=== PATIENT | male | born 1930 | race Caucasian/White ===

== ENCOUNTER → 2017-01-05 | Outpatient (CLI) | payer OTHER ==
--- NOTE | 2017-01-05 14:58 | CPEEG ---
[f rep st] ELECTROENCEPHALOGRAM ELECTROENCEPHALOGRAM. DATE OF STUDY: 01/05/2017 INTERPRETATION: Normal EEG during wakefulness and partial sleep. There were no potentially epilept ogenic abnormalities present in the recording. REPORT: This EEG contains 10 Hz alpha to the posterior head regions. The background activity was n ormal and symmetric. There was no abnormal activation at rest, during photic stimulation, or hyperv entilation. The patient intermittently became drowsy and fell into light sleep during the study. T here was no abnormal activation during drowsiness, light sleep, or during times of arousal. /[id number]/MODL
== END ==
LOC: FCPNEURO 11:03
PROVIDERS: ATTEND Psychiatry & Neurology Neurology
DX: H53.9 Unspecified visual disturbance (principal); R51 Headache

== ENCOUNTER → 2017-01-13 | Outpatient (CLI) | payer OTHER ==
[~2017-01-13] MED LIST: GADOBUTROL 10 ML VIAL IVP ONE
[2017-01-13 16:04] LABS: CREATININE 0.9 mg/dL (0.7-1.3); GLOMERULAR FILTRATION RATE > 60
== END ==
LOC: FIMAGING 15:09
PROVIDERS: ATTEND Psychiatry & Neurology Neurology
DX: R51 Headache (principal); H53.9 Unspecified visual disturbance
CPT/HCPCS: 70553; A9585

== ENCOUNTER 2017-12-27 03:41 | Inpatient (IN) | payer OTHER ==
[2017-12-27] MEDS ORDERED: NS 1,000 ML IV ONE (03:53)
[2017-12-27] MEDS ORDERED: fentaNYL 100 MCG/2 ML INJ IVP ONE ×2 (03:53→06:35)
--- NOTE | 2017-12-27 03:55 | EDPHY ---
H & P Stated Complaint: BLOATED SINCE 2229 Time Seen by Provider: 12/27/17 03:48 HPI/ROS: Chief Complaint: Abdominal pain HPI: 79-year-old male's began feeling abdominal distention and bloating at 8: 30 a.m. The yesterday evening when he went to bed. Patient states the pain is been getting progressively worse. No nausea or vomiting. Last bowel movement was yesterday morning was normal. No diarrhea. No fevers or chills. Does not have a history of similar episodes in the past. Has had an appendectomy in the past but no other abdominal surgeries. No chest pain or shortness of breath. No fevers or chills. No recent illness. ROS: 10 point Review of Systems is negative except as noted in the HPI. PMH: Polymyalgia rheumatica, spinal stenosis, hyperlipidemia Social History: No smoking, no alcohol, no recreational drug use Family History: non-contributory Physical Exam: Gen: Awake, Alert, No Distress HEENT: Nose: no rhinorrhea Eyes: PERRLA, EOMI Mouth: Moist mucosa Neck: Supple, no JVD Chest: nontender, lungs clear to auscultation Heart: S1, S2 normal, no murmur Abd: Soft, distended, diffuse tenderness, no guarding Back: no CVA tenderness, no midline tenderness Ext: no edema, non-tender Skin: no rash Neuro: CN II-XII intact, Sensation grossly intact, Strength 5/5 in bilateral upper and lower extremities - Personal History Current Tetanus Diphtheria and Acellular Pertussis (TDAP): Yes - Medical/Surgical History Hx Asthma: No Hx Chronic Respiratory Disease: No Hx Diabetes: No Hx Cardiac Disease: No Hx Renal Disease: No Hx Cirrhosis: No Hx Alcoholism: No Hx HIV/AIDS: No Hx Splenectomy or Spleen Trauma: No Other PMH: arthritis/varicocele/bph, HLD, POLYMYALGIA - Social History Smoking Status: Never smoked Constitutional: Initial Vital Signs Temperature (C) 36.3 C 12/27/17 03:41 Heart Rate 61 12/27/17 03:41 Respiratory Rate 12 12/27/17 03:41 Blood Pressure 158/90 H 12/27/17 03:41 O2 Sat (%) 95 12/27/17 03:41 O2 Delivery Mode Room Air Allergies/Adverse Reactions: Penicillins Allergy (Verified 08/11/13 15:59) Home Medications: Medication Instructions Recorded Flomax 0.4 MG (RX) 08/11/13 Prednisolone 08/11/13 Simvastatin 08/11/13 Zolpidem Tartrate 08/11/13 traMADOL 08/11/13 Finasteride 12/27/17 Ropinirole ER 12/27/17 Medical Decision Making - Diagnostics Imaging Results: CT scan of the abdomen pelvis shows a high-grade small-bowel obstruction in the right mid small bowel at the level the ileum. There is some mesenteric edema and free fluid. No perforation. Study interpreted by Dr. Truong. Imaging: Discussed imaging studies w/ call center operations manager Radiologist ED Course/Re-evaluation: CT scan is consistent with small-bowel obstruction. I have discussed with Dr. Hernandes, general surgery. He will admit for further care. - Data Points Laboratory Results: Laboratory Results 12/27/17 03:45 12/27/17 03:45 12/27/17 12/27/17 03:45 03:45 WBC 8.06 10^3/uL 10^3/uL (3.80-9.50) RBC 4.65 10^6/uL 10^6/uL (4.40-6.38) Hgb 15.0 g/dL g/dL (13.7-17.5) Hct 44.5 % % (40.0-51.0) MCV 95.7 fL fL (81.5-99.8) MCH 32.3 pg pg (27.9-34.1) MCHC 33.7 g/dL g/dL (32.4-36.7) RDW 13.2 % % (11.5-15.2) Plt Count 217 10^3/uL 10^3/uL (150-400) MPV 10.2 fL fL (8.7-11.7) Neut % (Auto) 74.4 % H % (39.3-74.2) Lymph % (Auto) 14.5 % L % (15.0-45.0) [place] % (Auto) 8.4 % % (4.5-13.0) Eos % (Auto) 1.7 % % (0.6-7.6) Baso % (Auto) 0.6 % % (0.3-1.7) Nucleat RBC Rel Count 0.0 % % (0.0-0.2) Absolute Neuts (auto) 5.99 10^3/uL 10^3/uL (1.70-6.50) Absolute Lymphs (auto) 1.17 10^3/uL 10^3/uL (1.00-3.00) Absolute Monos (auto) 0.68 10^3/uL 10^3/uL (0.30-0.80) Absolute Eos (auto) 0.14 10^3/uL 10^3/uL (0.03-0.40) Absolute Basos (auto) 0.05 10^3/uL 10^3/uL (0.02-0.10) Absolute Nucleated RBC 0.00 10^3/uL 10^3/uL (0-0.01) Immature Gran % 0.4 % % (0.0-1.1) Immature Gran # 0.03 10^3/uL 10^3/uL (0.00-0.10) Sodium 140 mEq/L mEq/L (135-145) Potassium 4.2 mEq/L mEq/L (3.3-5.0) Chloride 100 mEq/L mEq/L (97-110) Carbon Dioxide 30 mEq/l mEq/l (22-31) Anion Gap 10 mEq/L mEq/L (8-16) BUN 19 mg/dL mg/dL (7-23) Creatinine 0.9 mg/dL mg/dL (0.7-1.3) Estimated GFR > 60 Glucose 143 mg/dL H mg/dL (70-100) Calcium 9.3 mg/dL mg/dL (8.5-10.4) Total Bilirubin 0.6 mg/dL mg/dL (0.1-1.4) AST 29 IU/L IU/L (17-59) ALT 46 IU/L IU/L (21-72) Alkaline Phosphatase 56 IU/L IU/L (38-126) Total Protein 6.5 g/dL g/dL (6.3-8.2) Albumin 3.8 g/dL g/dL (3.5-5.0) Lipase 107 IU/L IU/L (23-300) Medications Given: Discontinued Medications Fentanyl (Sublimaze) 50 mcg IVP EDNOW ONE Stop: 12/27/17 03:54 Last Admin: 12/27/17 04:05 Dose: 50 mcg Sodium Chloride (Ns) 1,000 mls @ 0 mls/hr IV ONCE ONE; Wide Open PRN Reason: Protocol Stop: 12/27/17 03:54 Last Admin: 12/27/17 04:04 Dose: 1,000 mls Departure - Departure Disposition: [facility] Inpatient Acute Clinical Impression: Bowel obstruction Condition: Fair Referrals: Patient,NotPresent [Unknown] - As per Instructions
[2017-12-27 04:01] LABS: PLATELET COUNT 217 10^3/uL (150-400)
[2017-12-27] MEDS ORDERED: IOPAMIDOL (ISOVUE-300) 100 ML BTL ONE (04:19)
[2017-12-27] MEDS ORDERED: LIDOCAINE 1% 300 MG/30 ML SDV ONE (06:16)
[2017-12-27] MEDS ORDERED: BUPIVACAINE 0.5% 30 ML SDV ONE (06:16)
[2017-12-27] MEDS ORDERED: fentaNYL 100 MCG/2 ML INJ ONE ×3 (06:39→08:11)
--- NOTE | 2017-12-27 06:51 | PDANEPAE ---
ANE History of Present Illness SBO Lysis of adhesions ANE Past Medical History - Cardiovascular History Hx Hypertension: No Hx Arrhythmias: No Hx Chest Pain: No Hx Coronary Artery / Peripheral Vascular Disease: No Hx CHF / Valvular Disease: No Hx Palpitations: No - Pulmonary History Hx COPD: No Hx Asthma/Reactive Airway Disease: No Hx Recent Upper Respiratory Infection: No Hx Oxygen in Use at Home: No Hx Sleep Apnea: No - Endocrine History Hx Diabetes: No Hypothyroid: No Hyperthyroid: No Obesity: no - Renal History Hx Renal Disorders: No - Liver History Hx Hepatic Disorders: No - Neurological & Psychiatric Hx Hx Neurological and Psychiatric Disorders: No - Cancer History Hx Cancer: No - Chronic Pain History Chronic Pain: Yes (SPinal stenois) ANE Review of Systems Review of Systems: - Exercise capacity METS (RN): 3 METS - Systems Muscolosketal: Reports: other (Polymyalgia rheumatica) ANE Patient History - Allergies Allergies/Adverse Reactions: Penicillins Allergy (Verified 08/11/13 15:59) - Home Medications Home Medications: Flomax 0.4 MG (RX) 08/11/13 [Last Taken Unknown] Prednisolone 08/11/13 [Last Taken Unknown] Simvastatin 08/11/13 [Last Taken Unknown] Zolpidem Tartrate 08/11/13 [Last Taken Unknown] traMADOL 08/11/13 [Last Taken Unknown] Finasteride 12/27/17 [Last Taken Unknown] Ropinirole ER 12/27/17 [Last Taken Unknown] - NPO status NPO Status: no food or drink >8 hours - Anes Hx Anes Hx: no prior problems - Smoking Hx Smoking Status: Never smoked Marijuana use: No - Alcohol Use Alcohol Use: None - Family Anes Hx Family Anes Hx: neg - N/A ANE Labs/Vital Signs - Labs Result Diagrams: 12/27/17 03:45 12/27/17 03:45 - Vital Signs Blood Pressure: 148/73 Heart Rate: 75 Respiratory Rate: 16 O2 Sat (%): 96 Height: 180.34 cm Weight: 72.575 kg ANE Physical Exam - Airway Neck exam: decreased ROM Mallampati Score: Class 2 Mouth exam: normal dental/mouth exam, poor dentition - Pulmonary Pulmonary: no respiratory distress, no rales or rhonchi - Cardiovascular Cardiovascular: regular rate and rhythym, no murmur, rub, or gallop - ASA Status ASA Status: III ANE Anesthesia Plan Anesthesia Plan: general endotracheal anesthesia (RSI)
--- NOTE | 2017-12-27 06:57 | PDGENHP ---
History and Physical - Chief Complaint abdominal pain - History of Present Illness This is an 87-year-old gentleman known to [facility] for previous appendectomy 5 years ago and interval hernia. He has a 24 hr history of abdominal pain on starting as a crampy bloating feeling which shall woke him up from sleep this evening. He has been eating very small meals an x-ray was unable to eat prior to going to bed last night due to his ongoing abdominal pain. He denies any fevers or chills. He is last bowel movement/flatus was yesterday but he has had minimal bowel activity over the last 48 hr. Evaluation in the emergency room demonstrated small-bowel obstruction high- grade without leukocytosis or fever History Information - Allergies/Home Medication List Allergies/Adverse Reactions: Penicillins Allergy (Verified 08/11/13 15:59) Home Medications: Flomax 0.4 MG (RX) 08/11/13 [Last Taken Unknown] Prednisolone 08/11/13 [Last Taken Unknown] Simvastatin 08/11/13 [Last Taken Unknown] Zolpidem Tartrate 08/11/13 [Last Taken Unknown] traMADOL 08/11/13 [Last Taken Unknown] Finasteride 12/27/17 [Last Taken Unknown] Ropinirole ER 12/27/17 [Last Taken Unknown] I have personally reviewed and updated: family history, medical history, surgical history - Past Medical History hyperlipidemia Additional medical history: Polymyalgia rheumatica, BPH, dyspepsia - Surgical History Reports: appendectomy, hernia repair - Family History Positive for: non-pertinent - Social History Smoking Status: Never smoked Review of Systems Review of Systems: ROS: 10pt was reviewed & negative except for what was stated in HPI & below Constitutional: Reports: malaise. Denies: weight loss Cardiac: Reports: no symptoms Gastrointestinal: Reports: abdominal pain, nausea. Denies: vomitting, rectal bleeding, diarrhea Genitourinary: Reports: urgency Neurological: Reports: tremors Physical Exam Physical Exam: Temp Pulse Resp BP Pulse Ox 36.3 C 75 16 148/73 H 96 12/27/17 03:41 12/27/17 06:51 12/27/17 06:51 12/27/17 06:51 12/27/17 06:51 Constitutional: no apparent distress Eyes: anicteric sclera, EOMI Ears, Nose, Mouth, Throat: moist mucous membranes Cardiovascular: regular rate and rhythym Peripheral Pulses: 2+: carotid (R), carotid (L), femoral (R), femoral (L), dorsalis-pedis (R), dorsalis-pedis (L) Respiratory: no respiratory distress, clear to auscultation Gastrointestinal: no palpable masses, tenderness, distension, other (Small umbilical hernia reducible), No hepatosplenomegally, No guarding, No rebound Skin: warm, No erythema Musculoskeletal: full muscle strength, normal joint ROM Neurologic: AAOx3, CN II-XII Intact, No facial droop Psychiatric: interacting appropriately Lymph, Heme, Immunologic: no cervical LAD, no supraclavicular LAD, No ecchymoses , No petechiae Lab Data & Imaging Review 12/27/17 03:45 12/27/17 03:45 WBC 8.06 10^3/uL (3.80-9.50) 12/27/17 03:45 RBC 4.65 10^6/uL (4.40-6.38) 12/27/17 03:45 Hgb 15.0 g/dL (13.7-17.5) 12/27/17 03:45 Hct 44.5 % (40.0-51.0) 12/27/17 03:45 MCV 95.7 fL (81.5-99.8) 12/27/17 03:45 MCH 32.3 pg (27.9-34.1) 12/27/17 03:45 MCHC 33.7 g/dL (32.4-36.7) 12/27/17 03:45 RDW 13.2 % (11.5-15.2) 12/27/17 03:45 Plt Count 217 10^3/uL (150-400) 12/27/17 03:45 MPV 10.2 fL (8.7-11.7) 12/27/17 03:45 Neut % (Auto) 74.4 % (39.3-74.2) H 12/27/17 03:45 Lymph % (Auto) 14.5 % (15.0-45.0) L 12/27/17 03:45 [place] % (Auto) 8.4 % (4.5-13.0) 12/27/17 03:45 Eos % (Auto) 1.7 % (0.6-7.6) 12/27/17 03:45 Baso % (Auto) 0.6 % (0.3-1.7) 12/27/17 03:45 Nucleat RBC Rel Count 0.0 % (0.0-0.2) 12/27/17 03:45 Absolute Neuts (auto) 5.99 10^3/uL (1.70-6.50) 12/27/17 03:45 Absolute Lymphs (auto) 1.17 10^3/uL (1.00-3.00) 12/27/17 03:45 Absolute Monos (auto) 0.68 10^3/uL (0.30-0.80) 12/27/17 03:45 Absolute Eos (auto) 0.14 10^3/uL (0.03-0.40) 12/27/17 03:45 Absolute Basos (auto) 0.05 10^3/uL (0.02-0.10) 12/27/17 03:45 Absolute Nucleated RBC 0.00 10^3/uL (0-0.01) 12/27/17 03:45 Immature Gran % 0.4 % (0.0-1.1) 12/27/17 03:45 Immature Gran # 0.03 10^3/uL (0.00-0.10) 12/27/17 03:45 Sodium 140 mEq/L (135-145) 12/27/17 03:45 Potassium 4.2 mEq/L (3.3-5.0) 12/27/17 03:45 Chloride 100 mEq/L (97-110) 12/27/17 03:45 Carbon Dioxide 30 mEq/l (22-31) 12/27/17 03:45 Anion Gap 10 mEq/L (8-16) 12/27/17 03:45 BUN 19 mg/dL (7-23) 12/27/17 03:45 Creatinine 0.9 mg/dL (0.7-1.3) 12/27/17 03:45 Estimated GFR > 60 12/27/17 03:45 Glucose 143 mg/dL (70-100) H 12/27/17 03:45 Calcium 9.3 mg/dL (8.5-10.4) 12/27/17 03:45 Total Bilirubin 0.6 mg/dL (0.1-1.4) 12/27/17 03:45 AST 29 IU/L (17-59) 12/27/17 03:45 ALT 46 IU/L (21-72) 12/27/17 03:45 Alkaline Phosphatase 56 IU/L (38-126) 12/27/17 03:45 Total Protein 6.5 g/dL (6.3-8.2) 12/27/17 03:45 Albumin 3.8 g/dL (3.5-5.0) 12/27/17 03:45 Lipase 107 IU/L (23-300) 12/27/17 03:45 Imaging Review: Personally reviewed CT scan and compared with CT scan from 2014 high-grade obstruction in the distal jejunum proximal ileum are noted. Assessment & Plan Assessment: Bowel obstruction (Acute) Plan: Exploratory laparotomy lysis of adhesions possible enterectomy. The risks benefits and alternatives were outlined to the patient and a call was made to his daughter Medhat Connelly who is his power of disability attorney in case of medical CT incapacitation. Her number is [phone] which has been change in his demographic information. The risks include bleeding, infection injury to surrounding structures need for further intervention. The patient verbalized his understanding as did his daughter prior to obtaining written consent. No anticipated blood time in the hospital likely about 2-4 days
[2017-12-27] MEDS ORDERED: PROPOFOL/EMULSION 500 MG/50 ML BOTTLE IV ONE (06:59)
[2017-12-27] MEDS ORDERED: DEXAMETHASONE 4 MG/ML VIAL ONE (07:00)
[2017-12-27] MEDS ORDERED: ROCURONIUM 50 MG/5 ML VIAL ONE (07:00)
[2017-12-27] MEDS ORDERED: SUGAMMADEX SODIUM 200 MG/2 ML VIAL IVP ONE (07:47)
[2017-12-27] MEDS ORDERED: ONDANSETRON 4 MG/2 ML VIAL ONE (07:47)
--- NOTE | 2017-12-27 07:52 | POSTOPPROG ---
Post Op Note Date of Operation: 12/27/17 Surgeon: Ramirez Hernandes Sped Teacher: none Anesthesiologist: Costa Anesthesia: GET(General Endotracheal) Pre-op Diagnosis: SBO Post-op Diagnosis: same Procedure: Laparotomy BRANDON Findings: adhesive closed loop obstruction Inf/Abcess present in the surg proc area at time of surgery?: No Depth: Organ Space EBL: Minimal Complications: none Specimen(s): none
[2017-12-27] MEDS ORDERED: ONDANSETRON 4 MG/2 ML VIAL IVP PRN ×2 (07:55→08:11)
[2017-12-27] MEDS ORDERED: fentaNYL 100 MCG/2 ML INJ IVP PRN (08:11)
[2017-12-27] MEDS ORDERED: LABETALOL HCL 5 MG/ML 20 ML MDV IVP PRN (08:11)
[2017-12-27] MEDS ORDERED: MEPERIDINE 25 MG/0.5 ML AMP IVP PRN (08:11)
[2017-12-27] MEDS ORDERED: NALOXONE HCL 0.4 MG/ML INJ IVP PRN (08:11)
[2017-12-27] MEDS ORDERED: HYDROmorphONE/DILAUDID 2 MG/ML INJ IVP PRN (08:11)
--- NOTE | 2017-12-27 08:20 | PDMN ---
Medical Necessity Medical necessity: C/M review: est. > 2 MN LOS for eval and TX of acute high grade small bowel obstruction seen on CT, abdominal pain requiring urgent 2017 surgery - exploratory laparotomy, lysis of adhesions -Inpatient surgery per Medicare guidelines, findings: adhesive closed loop obstruction, ongoing postop IV fluids, comorbid appendectomy 5 years ago and interval hernia, history of polymyalgia rheumatic, BPH, dyspepsia, hernia repair, per H/P, Surgery Postoperative report.
--- NOTE | 2017-12-27 08:24 | GOP ---
[f rep st] OPERATIVE REPORT DATE OF OPERATION: SURGEON: Ramirez Hernandes MD ANESTHESIA: General endotracheal anesthesia was used. ANESTHESIOLOGIST: Dr. Candy Skelton. PREOPERATIVE DIAGNOSIS: Small-bowel obstruction. POSTOPERATIVE DIAGNOSIS: Closed-loop small bowel obstruction from omental adhesion. PROCEDURE PERFORMED: Laparotomy with lysis of adhesions FINDINGS: SPECIMENS: No specimen. DESCRIPTION OF PROCEDURE: The patient was brought to the operating room and after induction of endot shi anesthesia in a supine position, abdomen was prepped with chlorhexidine and draped sterilely. Time-out procedure was then performed according to institutional standards. Local anesthetic was infused in skin and subcutaneous tissues of the midline and a laparotomy is made . The abdomen was entered sharply through the fascia and the adhesion is immediately noted just to t he right of the umbilicus. The omental adhesion is teased apart and then ligated. The bowel is exte riorated and after evisceration of the bowel, it is seen to be a closed loop obstruction with congest ed appearing mesentery. The bowel is peristalsing and there is good resolution of the edema over the course of 5-10 minutes with warm towels over the bowel. The bowel is deemed to be viable. It is re introduced in the abdomen. Suppurative fluid is then aspirated. After needle, instrument, sponge counts were verified to be correct, the abdomen was closed using #1 PDS at the level of the fascia, and the skin was reapproximated with a running Monocryl suture. Derm abond was applied. The patient is being woken imminently going to the recovery room. Needle, instru ment, and sponge count verified to be correct a second time. 87-year-old gentleman who had a previous appendectomy about 5 years ago, presents with what appears t o be a high-grade small bowel obstruction. COMPLICATIONS: There were no complications. /[id number]/MODL
[2017-12-27] MEDS ORDERED: LIDOCAINE 2% 5 ML SDV ONE (08:28)
[2017-12-27] MEDS ORDERED: HYDROmorphONE/DILAUDID 1 MG/ML INJ IVP PRN (09:00)
[2017-12-27] MEDS: ENOXAPARIN 40 MG/0.4 ML SYR SC SCH (10:08)
--- NOTE | 2017-12-27 11:10 | ASMTCMCOM ---
CM Note CM Note Notes: Chart reviewed for discharge planning purposes, 87 year old male admitted via ED with abdominal pain found to have high grade SBO. S/P laporascopic lysis of adhesions. Needs TBD at this time. CM to follow. Plan: TBD Date Signed: 12/27/2017 11:10 AM Electronically Signed By:Jenna Almanza RN
[2017-12-27] MEDS: predniSONE 1 MG TAB PO SCH ×2 (15:15→22:10)
[2017-12-27] MEDS: FAMOTIDINE 20 MG TAB PO SCH (15:16)
[2017-12-27] MEDS: FINASTERIDE 5 MG TAB PO SCH (15:16)
[2017-12-27] MEDS: ATORVASTATIN CALCIUM 20 MG TAB PO SCH (15:16)
--- NOTE | 2017-12-27 15:36 | GCON ---
[f rep st] CONSULTATION MEDICINE CONSULTATION DATE OF CONSULTATION: 12/27/2017 HISTORY OF PRESENT ILLNESS: The patient is an 87-year-old male with history of prior appendectomy an d hernia repair, sent to the emergency department with a high-grade bowel obstruction and was admitte d by the surgery service. He underwent laparotomy and lysis of adhesions and is recovering well. Tn bethanie consultation is requested due to his multiple medical problems. Overall, his condition is sta ble. His pain is controlled. He complains of some abdominal distention. An NG tube is in place. H deepa has had no nausea, vomiting. No fevers, chest pain, or shortness of breath. PAST MEDICAL/SURGICAL HISTORY: 1. Appendectomy. 2. Hernia repair. 3. Benign prostatic hypertrophy. 4. Polymyalgia rheumatica. 5. Dyspepsia. 6. Spinal stenosis. 7. Hyperlipidemia. MEDICATIONS: Please see [employer] for completed outpatient medication list. ALLERGIES: Penicillins. SOCIAL HISTORY: At this point, patient lives independently. He denies tobacco or alcohol use. FAMILY HISTORY: Reviewed and not pertinent. REVIEW OF SYSTEMS: A 10-point review of systems performed is negative, except as per HPI. OBJECTIVE: VITAL SIGNS: Temperature is 36.9, blood pressure 146/64, heart rate is 85, respiratory r ate 18, he is 97% on 3 L oxygen by nasal cannula. GENERAL: Patient is awake, alert, oriented, in no distress. HEENT: Head is atraumatic, normocephalic. Pupils equal, round, react to light. Extraoc ular motions are intact. Oropharynx is clear. Mucous membranes are moist. NECK: Supple. There is no JVD. HEART: Regular rate and rhythm without murmur. LUNGS: Clear to auscultation bilaterally, though diminished at the bases. ABDOMEN: Soft, moderately distended with mild tenderness to palpat ion. No peritoneal signs. No rebound, rigidity, or guarding. Hypoactive bowel tones are present. EXTREMITIES: Without cyanosis, clubbing, or edema. NEUROLOGIC: Grossly nonfocal. LABORATORY/IMAGING: CBC this morning shows normal white count, normal hemoglobin of 15, platelets 21 7. Complete metabolic panel is within normal limits. Blood sugar was 143. Urinalysis shows specifi c gravity 1.031 with 1+ blood and 5-10 red cells, otherwise negative. Abdomen CT on in the emergency department shows a high-grade small bowel obstruction with a focal tra nsition point noted, as well as mesenteric edema and a small amount of free fluid, but no free air. Abdominal plain film showed appropriate placement of the NG tube. ASSESSMENT/PLAN: The patient is an 87-year-old male who was admitted hospital with high-grade bowel obstruction who is status post laparotomy with lysis of adhesions. 1. Small-bowel obstruction, status post laparotomy with lysis of adhesions. Patient is postop day 0 . Nasogastric tube is in place. Surgery is following. Continue postop management per Surgery. 2. Advance diet per Surgery. We will order his home oral medications and once he is cleared to take p.o., we can resume his regular medicines. 3. Polymyalgia rheumatica. We will continue patient's home prednisone dose. I do not see an indica tion for stress dose steroids at this time, though should he have a change in his status, would consi talon stress dose steroids. 4. Benign prostatic hypertrophy. We will continue Proscar. 5. Spinal stenosis. Continue p.r.n. tramadol, in addition to p.r.n. Dilaudid for pain control in th e postop setting. 6. Hyperlipidemia. Continue statin. 7. Deep venous thrombosis prophylaxis. Lovenox per Surgery. 8. Code status. Patient is full code. DISPOSITION: Patient is admitted to inpatient status as he will likely require greater than 48 hours hospitalization. We will continue to follow along during his hospitalization. Thank you very much for this consultation. Please do not hesitate to call us with any further questi ons or concerns. /[id number]/MODL
[2017-12-27] MEDS ORDERED: NON-FORMULARY NEW DRUG (Ranitidine Hcl [Ranitidine Hcl] 75 MG) PO SCH (17:00)
[2017-12-27] MEDS ORDERED: ROPINIROLE HCL 0.5 MG PO SCH (17:00)
[2017-12-27] MEDS ORDERED: NON-FORMULARY NEW DRUG (Simvastatin [Simvastatin] 40 MG) PO SCH (17:00)
[2017-12-27] MEDS: traMADol 50 MG TAB PO SCH (22:10)
[2017-12-28] MEDS: traMADol 50 MG TAB PO SCH ×2 (08:14→21:01)
[2017-12-28] MEDS: predniSONE 1 MG TAB PO SCH ×3 (08:14→21:01)
[2017-12-28] MEDS: ENOXAPARIN 40 MG/0.4 ML SYR SC SCH (08:15)
--- NOTE | 2017-12-28 08:30 | SOAPPROG ---
FRAN Progress Note Assessment/Plan: Assessment/Plan: Postop day 1Sidney Vanegas is an 87-year-old gentleman who just underwent laparotomy and lysis of adhesions for obstructive process from omental adhesions. He is multiple small medical problems which will need to be addressed over the course of his admission but he seems clinically stable at this point. His biggest complaint is of back pain which he takes tramadol for. He has not been ambulatory and he has had about 800 cc out of his NG tube over the course of last 24 hr. His abdomen is still distended and it does not appear that he is passing gas or having bowel movements as of yet. His ileus makes me hesitant to restart his home medications however I do think tramadol and Ambien which he has requested are okay. Alert oriented no distress NG tube in place with bilious output of 800 cc over the last 24 hr. Abdomen softly distended incision clean and dry. Extremities without edema Impression/plan: Elderly gentleman with postoperative ileus as expected. Would continue NG tube for now. He may have clear liquids as tolerated. Encourage ambulation and IS. I will restart his tramadol, finasteride and provide Ambien for sleep. Appreciate Medicine input. Anticipate 3 day hospital stay. 12/28/17 08:23 Objective: Vital Signs Temp Pulse Resp BP Pulse Ox 36.8 C 87 18 157/81 H 95 12/28/17 08:00 12/28/17 08:00 12/28/17 08:00 12/28/17 08:00 12/28/17 08:00 Laboratory Results 12/28/17 04:50 12/28/17 04:50 12/27/17 12/28/17 12/29/17 05:59 05:59 05:59 Intake Total 1000 580 Output Total 200 2400 100 Balance 800 -1820 -100 ICD10 Worksheet Patient Problems: Problems Problem Status Onset Bowel obstruction Acute Acute appendicitis Acute
[2017-12-28] MEDS ORDERED: ZOLPIDEM TARTRATE 5 MG TAB PO PRN (08:31)
--- NOTE | 2017-12-28 09:36 | POSTANESTH ---
Post Anesthetic Evaluation Cardiovascular Status: Normal, Stable Respiratory Status: Normal, Stable Level of Consciousness/Mental Status: Can Participate in Eval Pain Control: Adequate, Prn Tx Ordered Nausea/Vomiting Control: Adequate, Prn Tx Ordered Complications Possibly Related to Anesthesia: None Noted (Sitting up)
--- NOTE | 2017-12-28 10:42 | HOSPPROG ---
Hospitalist Progress Note Assessment/Plan: SBO - s/p lap / BRANDON POD #1. Post-op care per surgery. Post-op ileus - NG tube remains, taking some clears. Encouraged ambulation. PMR - cont home prednisone BPH - cont proscar Spinal stenosis - cont home tramadol Hyperlipidemia - cont statin Full code DVT PPLX - Lovenox Dispo - cont inpt, PT/OT Subjective: Pt feels ok, no flatus or BM. No N/V. NG tube in place. No fevers /chills, CP or SOB. Up in chair. Objective: Vital Signs Temp Pulse Resp BP Pulse Ox 36.8 C 87 18 157/81 H 95 12/28/17 08:00 12/28/17 08:00 12/28/17 08:00 12/28/17 08:00 12/28/17 08:00 Laboratory Results 12/28/17 04:50 12/28/17 04:50 12/27/17 12/28/17 12/29/17 05:59 05:59 05:59 Intake Total 1000 580 Output Total 200 2400 200 Balance 800 -1820 -200 - Physical Exam Constitutional: no apparent distress Eyes: PERRL Ears, Nose, Mouth, Throat: moist mucous membranes Cardiovascular: regular rate and rhythym Respiratory: no respiratory distress, reduced air movement Gastrointestinal: other (soft, moderate distention, no r/r/g, nontender, hypoactive BS) Skin: warm Musculoskeletal: full muscle strength Neurologic: AAOx3 ICD10 Worksheet Patient Problems: Problems Problem Status Onset Bowel obstruction Acute Acute appendicitis Acute
[2017-12-28] MEDS: HYDROCODONE/APAP 5/325 TAB PO PRN (13:22)
[2017-12-28] MEDS: FINASTERIDE 5 MG TAB PO SCH ×2 (16:01→16:10)
[2017-12-28] MEDS: ATORVASTATIN CALCIUM 20 MG TAB PO SCH (16:01)
[2017-12-28] MEDS: FAMOTIDINE 20 MG TAB PO SCH (16:01)
[2017-12-28] MEDS: D5W 1/2 NS 1,000 ML IV SCH (16:20)
--- NOTE | 2017-12-29 08:36 | SOAPPROG ---
SOAP Progress Note Assessment/Plan: Assessment/Plan: s/p fiorella patch for perforated gastric ulcer POD #3- advance diet to post gastrectomy diet (6 small meals per day). If tolerating regular diet well then plan for d/c this afternoon. Discussed Tylenol and oxycodone for pain. 12/29/17 08:40 Subjective: No overnight issues. No BM, having flatus. No urinary complaints. Tolerating PO liquids well without nausea. Mild persistent LUQ pain unchanged. Objective: Vital Signs Temp Pulse Resp BP Pulse Ox 37.2 C 78 16 156/82 H 95 12/29/17 07:45 12/29/17 07:45 12/29/17 07:45 12/29/17 07:45 12/29/17 07:45 Laboratory Results 12/28/17 04:50 12/28/17 04:50 12/28/17 12/29/17 12/30/17 05:59 05:59 05:59 Intake Total 580 300 300 Output Total 2400 1550 325 Balance -1820 -1250 -25 Physical Exam: Gen: A&O, appears comfortable, afebrile HEENT: anicteric Skin: normal Heart: RRR Lungs: CTA vidal Abdomen: soft, minimally distended, nontender. Incision clean without erythema. Extremities: unremarkable Neuro: nonfocal ICD10 Worksheet Patient Problems: Problems Problem Status Onset Bowel obstruction Acute Acute appendicitis Acute
--- NOTE | 2017-12-29 09:08 | SOAPPROG ---
SOAP Progress Note Assessment/Plan: Assessment/Plan: s/p laparotomy with lysis of adhesions POD #2. Continue with clear fluids and ambulation today. Will consider NG tube removal and advancing diet once patient has flatus. 12/29/17 10:50 Subjective: No overnight issues. Still no flatus or BM. No urinary concerns. Complains of throat irritation from NG tube this morning. No nausea. Has been ambulating the halls. Mild RLQ abdominal pain, no incision complaints. No shortness of breath or chest pain. Objective: Vital Signs Temp Pulse Resp BP Pulse Ox 37.2 C 78 16 156/82 H 95 12/29/17 07:45 12/29/17 07:45 12/29/17 07:45 12/29/17 07:45 12/29/17 07:45 Laboratory Results 12/28/17 04:50 12/28/17 04:50 12/28/17 12/29/17 12/30/17 05:59 05:59 05:59 Intake Total 580 300 300 Output Total 2400 1550 325 Balance -1820 -1250 -25 Physical Exam: Gen: alert and oriented, appears comfortable, afebrile HEENT: anicteric, NG tube in place with 800cc bilious drainage overnight Skin: normal, good turgor Heart: RRR Lungs: CTA bilaterally Abdomen: soft, distended, mild RLQ tenderness. Incisions clean without erythema. Ext: no edema Neuro: nonfocal ICD10 Worksheet Patient Problems: Problems Problem Status Onset Bowel obstruction Acute Acute appendicitis Acute
[2017-12-29] MEDS: traMADol 50 MG TAB PO SCH ×2 (10:37→21:53)
[2017-12-29] MEDS: ENOXAPARIN 40 MG/0.4 ML SYR SC SCH (10:38)
[2017-12-29] MEDS: predniSONE 1 MG TAB PO SCH ×3 (10:38→21:52)
[2017-12-29] MEDS: D5W 1/2 NS 1,000 ML IV SCH (11:12)
--- NOTE | 2017-12-29 13:03 | SOAPPROG ---
FRAN Progress Note Assessment/Plan: Assessment/Plan: Postop day 1Sidney Vanegas is an 87-year-old gentleman who just underwent laparotomy and lysis of adhesions for obstructive process from omental adhesions. He is multiple small medical problems which will need to be addressed over the course of his admission but he seems clinically stable at this point. His biggest complaint is of back pain which he takes tramadol for. He has not been ambulatory and he has had about 800 cc out of his NG tube over the course of last 24 hr. His abdomen is still distended and it does not appear that he is passing gas or having bowel movements as of yet. His ileus makes me hesitant to restart his home medications however I do think tramadol and Ambien which he has requested are okay. Alert oriented no distress NG tube in place with bilious output of 800 cc over the last 24 hr. Abdomen distended incision clean and dry. Extremities without edema Impression/plan: Elderly gentleman with postoperative ileus as expected. Would continue NG tube for now. He may have clear liquids as tolerated. Encourage ambulation and IS. I will restart his tramadol, finasteride and provide Ambien for sleep. Appreciate Medicine input. Anticipate 3 day hospital stay. AXR in am if no improvement 12/28/17 08:23 12/29/17 13:03 Objective: Vital Signs Temp Pulse Resp BP Pulse Ox 36.8 C 96 16 159/73 H 91 L 12/29/17 10:53 12/29/17 10:53 12/29/17 10:53 12/29/17 10:53 12/29/17 10:53 Laboratory Results 12/28/17 04:50 12/28/17 04:50 12/28/17 12/29/17 12/30/17 05:59 05:59 05:59 Intake Total 580 300 300 Output Total 2400 1550 325 Balance -1820 -1250 -25 ICD10 Worksheet Patient Problems: Problems Problem Status Onset Bowel obstruction Acute Acute appendicitis Acute
--- NOTE | 2017-12-29 14:26 | ASMTCMCOM ---
CM Note CM Note Notes: CM spoke w/ Dr. Soliz regarding d/c POC. Dr. Soliz would like pt to go to a SNF. Pt has 24hr caregivers for his that has dementia. CM met w/ pt for dispo planning. Pt is agreeable to going to SNF. Pts first choice is [facility] and second choice is [facility]. CM completed non triggering PASRR. CM to follow. Plan: TBD Date Signed: 12/29/2017 02:25 PM Electronically Signed By:AYESHA Carballo
--- NOTE | 2017-12-29 17:01 | HOSPPROG ---
Hospitalist Progress Note Assessment/Plan: SBO - s/p lap / BRANDON POD #2. Post-op care per surgery. Post-op ileus - NG tube remains, taking some clears. Encouraged ambulation. Per surg, abdominal xray in am if not improving. PMR - cont home prednisone BPH - cont proscar Spinal stenosis - cont home tramadol Hyperlipidemia - cont statin Full code DVT PPLX - Lovenox Dispo - cont inpt, PT/OT, will likely need SNF Subjective: Pt feels tired. No flatus or BM. Feels distended. No significant pain. No fevers. No N/V. Ng tube in place. Objective: Vital Signs Temp Pulse Resp BP Pulse Ox 36.8 C 104 H 16 113/96 H 92 12/29/17 15:51 12/29/17 15:51 12/29/17 15:51 12/29/17 15:51 12/29/17 15:51 Laboratory Results 12/28/17 04:50 12/28/17 04:50 12/28/17 12/29/17 12/30/17 05:59 05:59 05:59 Intake Total 580 300 300 Output Total 2400 1550 325 Balance -1820 -1250 -25 - Physical Exam Constitutional: no apparent distress Eyes: PERRL Ears, Nose, Mouth, Throat: moist mucous membranes Cardiovascular: regular rate and rhythym Respiratory: no respiratory distress, clear to auscultation Gastrointestinal: other (soft, moderate distention, hypoactive BS) Skin: warm Musculoskeletal: full muscle strength Neurologic: AAOx3 Psychiatric: interacting appropriately ICD10 Worksheet Patient Problems: Problems Problem Status Onset Bowel obstruction Acute Acute appendicitis Acute
[2017-12-29] MEDS: ATORVASTATIN CALCIUM 20 MG TAB PO SCH (17:17)
[2017-12-29] MEDS: FINASTERIDE 5 MG TAB PO SCH (17:17)
[2017-12-29] MEDS: FAMOTIDINE 20 MG TAB PO SCH (17:17)
[2017-12-30] MEDS: D5W 1/2 NS 1,000 ML IV SCH (05:44)
[2017-12-30] MEDS: traMADol 50 MG TAB PO SCH ×2 (08:01→21:00)
[2017-12-30] MEDS: ENOXAPARIN 40 MG/0.4 ML SYR SC SCH (08:03)
[2017-12-30] MEDS: predniSONE 1 MG TAB PO SCH ×3 (09:36→21:00)
--- NOTE | 2017-12-30 10:46 | ASMTCMCOM ---
CM Note CM Note Notes: CM met w/ pt for dispo planning. [facility] accepted pt. [facility] unable to accept. Pt is agreeable to going to [facility]. CM spoke w/ Dr. Sam and GABY Sharif regarding d/c POC. CM available for changes. Plan: [facility] Date Signed: 12/30/2017 10:45 AM Electronically Signed By:AYESHA Carballo
[2017-12-30] MEDS: HYDROCODONE/APAP 5/325 TAB PO PRN ×2 (12:12→19:55)
--- NOTE | 2017-12-30 13:05 | SOAPPROG ---
<Ann Echeverria - Last Filed: 12/30/17 13:01> SOAP Progress Note Assessment/Plan: Assessment/Plan: s/p laparotomy with lysis of adhesions POD #3. Clear fluids and ambulation today. NG tube removed this am. Patient has been accepted to SNF for possible d/ c tomorrow. Discussed diagnosis, procedure, and plan with his daughter (Marcel) . 12/29/17 10:50 12/30/17 13:08 Subjective: NG tube nonfunctional d/t being partially removed at some point overnight. Having small amount of flatus. Tolerating clears well but denies much oral intake d/t throat irritation. No BM. No urinary complaints. Has been ambulating halls a few times per day. Seeing PT daily. Daughter present in room today. Objective: Vital Signs Temp Pulse Resp BP Pulse Ox 36.9 C 83 18 145/66 H 91 L 12/30/17 11:05 12/30/17 11:05 12/30/17 11:05 12/30/17 11:05 12/30/17 11:05 Laboratory Results 12/28/17 04:50 12/28/17 04:50 12/29/17 12/30/17 12/31/17 05:59 05:59 05:59 Intake Total 300 2166 Output Total 1550 750 100 Balance -1250 1416 -100 Physical Exam: Gen: alert and oriented, appears comfortable, afebrile HEENT: anicteric, NG tube removed Skin: normal Heart: RRR Lungs: CTA bilateral Abdomen: Soft, distended, mild tenderness. Incision clean without erythema. Extremities: no edema Neuro: nonfocal ICD10 Worksheet Patient Problems: Problems Problem Status Onset Bowel obstruction Acute Acute appendicitis Acute <Ramirez Hernandes - Last Filed: 12/30/17 17:26> SOAP Progress Note Assessment/Plan: Assessment/Plan: Ileus slowly resolving encourage ambulation. SNF on d/c would be ideal May shower Cont clears 12/30/17 17:25 Objective: Vital Signs Temp Pulse Resp BP Pulse Ox 37.1 C 79 18 131/63 H 91 L 12/30/17 16:00 12/30/17 16:00 12/30/17 16:00 12/30/17 16:00 12/30/17 16:00 Laboratory Results 12/28/17 04:50 12/28/17 04:50 12/29/17 12/30/17 12/31/17 05:59 05:59 05:59 Intake Total 300 2166 1060 Output Total 1550 750 300 Balance -1250 1416 393
[2017-12-30] MEDS ORDERED: POLYETHYLENE GLYCOL 3350 17 GM PKT PO ONE (16:12)
[2017-12-30] MEDS ORDERED: BISACODYL 10 MG SUPP PR PRN (16:12)
[2017-12-30] MEDS ORDERED: LACTULOSE 20 GM/30 ML UDCUP PO PRN (16:12)
[2017-12-30] MEDS ORDERED: MAGNESIUM HYDROXIDE 30 ML UDCUP PO PRN (16:12)
[2017-12-30] MEDS ORDERED: POLYETHYLENE GLYCOL 3350 17 GM PKT PO PRN (16:12)
[2017-12-30] MEDS: FINASTERIDE 5 MG TAB PO SCH (16:28)
[2017-12-30] MEDS: FAMOTIDINE 20 MG TAB PO SCH (16:28)
[2017-12-30] MEDS: ATORVASTATIN CALCIUM 20 MG TAB PO SCH (16:29)
--- NOTE | 2017-12-30 17:55 | HOSPPROG ---
Hospitalist Progress Note Assessment/Plan: Assessment: 87-year-old male presenting with acute small-bowel obstruction secondary to omental adhesions Plan: 1. Small-bowel obstruction. Acute, secondary to omental adhesions noted on exploratory laparotomy with lysis of adhesions -postop day 3 Dr. Hernandes -NG tube removed -advancing from clear liquids 2. Acute Post-op ileus. Passing flatus, ambulating w/ RN -patient reports that at baseline he has to take miralax several times weekly for BM, will introduce one dose now, gauge effect 3. Chronic PMR w/ chronic steroid dependency. Cont home prednisone, tramadol PRN 4. Chronic BPH. Cont proscar 5. Chronic Spinal stenosis. Cont home tramadol 6. Chronic Hyperlipidemia. Cont statin Full code DVT PPx. Lovenox Diet. Clears, adv under direction of Dr. Hernandes Dispo. ADD 12/31, pending resolution of ileus Subjective: no BMs, passing flatus Objective: Vital Signs Temp Pulse Resp BP Pulse Ox 37.1 C 79 18 131/63 H 91 L 12/30/17 16:00 12/30/17 16:00 12/30/17 16:00 12/30/17 16:00 12/30/17 16:00 Laboratory Results 12/28/17 04:50 12/28/17 04:50 12/29/17 12/30/17 12/31/17 05:59 05:59 05:59 Intake Total 300 2166 1060 Output Total 1550 750 400 Balance -1250 1416 660 - Pending Discharge Pending Discharge Within 24 Hours: Yes Pending Discharge Date: 12/31/17 Pending Discharge Time: 11:00 - Physical Exam Constitutional: no apparent distress, appears nourished, not in pain, No uncomfortable Cardiovascular: regular rate and rhythym, no murmur, rub, or gallop, No edema Respiratory: no respiratory distress, no rales or rhonchi, clear to auscultation Gastrointestinal: tenderness (mild at surg site), distension (mild), No normoactive bowel sounds (hypoactive bowel sounds), No guarding Neurologic: AAOx3, sensation intact bilaterally, No weakness Psychiatric: interacting appropriately, not anxious, not encephalopathic, thought process linear ICD10 Worksheet Patient Problems: Problems Problem Status Onset Bowel obstruction Acute Acute appendicitis Acute
[2017-12-30] MEDS: SENNOSIDES/DOCUSATE SODIUM TAB PO SCH (21:00)
[2017-12-31] MEDS: D5W 1/2 NS 1,000 ML IV SCH (07:12)
[2017-12-31] MEDS: traMADol 50 MG TAB PO SCH ×2 (08:05→21:01)
[2017-12-31] MEDS: ENOXAPARIN 40 MG/0.4 ML SYR SC SCH (08:05)
[2017-12-31] MEDS: SENNOSIDES/DOCUSATE SODIUM TAB PO SCH ×2 (08:05→21:01)
[2017-12-31] MEDS: predniSONE 1 MG TAB PO SCH ×3 (08:05→21:01)
--- NOTE | 2017-12-31 08:45 | SOAPPROG ---
SOAP Progress Note Assessment/Plan: Assessment/Plan: s/p laparotomy with lysis of adhesions POD #4. Ileus improving with regular flatus, still no BM. Advance to regular diet as tolerated. Possible d/c this afternoon if he continues to improve and tolerates regular diet. Encourage continued ambulation. 12/31/17 12:36 Subjective: No overnight concerns. Has been having flatus. [place] he could have a BM this morning but no success. Tolerating clears well. No nausea, bloating improving. Minimal abdominal pain, mostly incisional. No chest pain or shortness of breath. Has been ambulating but feels limited d/t feeling weak. Objective: Vital Signs Temp Pulse Resp BP Pulse Ox 37.1 C 87 16 136/78 H 89 L 12/31/17 07:57 12/31/17 07:57 12/31/17 07:57 12/31/17 07:57 12/31/17 07:57 Laboratory Results 12/28/17 04:50 12/28/17 04:50 12/30/17 12/31/17 01/01/18 05:59 05:59 05:59 Intake Total 2166 2147 Output Total 750 850 Balance 1416 1297 Physical Exam: Gen: sitting in recliner, A&O, appear comfortable HEENT: anicteric Skin: normal, good turgor Heart: irregular rhythm Lungs: CTA bilateral Abdomen: Incision clean without erythema. Soft, distended, minimal tenderness. No rebound or guarding. Ext: unremarkable, no edema Neuro: nonfocal ICD10 Worksheet Patient Problems: Problems Problem Status Onset Bowel obstruction Acute Acute appendicitis Acute
--- NOTE | 2017-12-31 11:22 | CPEKG ---
Heart Rate: 79 RR Interval: 759 P-R Interval: 144 QRSD Interval: 98 QT Interval: 408 QTC Interval: 468 P [place]: 51 QRS [place]: -54 T Wave [place]: 65 EKG Severity - ABNORMAL ECG - EKG Impression: SINUS RHYTHM EKG Impression: SUPRAVENTRICULAR BIGEMINY EKG Impression: LEFT ANTERIOR FASCICULAR BLOCK Electronically Signed By: Myra Yousif 31-Dec-2017 18:20:36
[2017-12-31 11:43] LABS: PLATELET COUNT 196 10^3/uL (150-400)
--- NOTE | 2017-12-31 14:05 | ASMTCMCOM ---
CM Note CM Note Notes: Discussed patient with Dr. Sam. Not medically cleared for discharge to SNF at this time. Most likely tomorrow. CM to follow. Plan: to [facility] when medically cleared for discharge. Date Signed: 12/31/2017 02:05 PM Electronically Signed By:Jenna Almanza RN
--- NOTE | 2017-12-31 17:05 | HOSPPROG ---
Hospitalist Progress Note Assessment/Plan: Assessment: 87-year-old male presenting with acute small-bowel obstruction secondary to omental adhesions Plan: 1. Small-bowel obstruction. Acute, secondary to omental adhesions noted on exploratory laparotomy with lysis of adhesions -postop day 4 Dr. Hernandes -NG tube out -cont clears 2. Acute Post-op ileus. Passing flatus, ambulating w/ RN -patient reports that at baseline he has to take miralax several times weekly for BM, give daily w/ senokot -d/w Dr. Hernandes, we both agree that this remains clinically unresolved and patient needs a BM prior to safe discharge 3. Chronic PMR w/ chronic steroid dependency. Cont home prednisone, tramadol PRN 4. Chronic BPH. Cont proscar 5. Chronic Spinal stenosis. Cont home tramadol 6. Chronic Hyperlipidemia. Cont statin 7. Lethargy. Acute worsening today, new problem, further w/u indicated. Unclear if 2/2 overexertion vs. deconditioning vs. brewing infxn -get CBC/CMP 8. Sinus arrhythmia. Chronic, present on EKG (personally interpreted) Full code DVT PPx. Lovenox Diet. Clears, adv under direction of Dr. Hernandes Dispo. ADD 01/01 to SNF, pending resolution of ileus Subjective: slept all morning, passing flatus but no BM Objective: Vital Signs Temp Pulse Resp BP Pulse Ox 37.0 C 92 14 111/48 L 92 12/31/17 16:00 12/31/17 16:00 12/31/17 16:00 12/31/17 16:00 12/31/17 16:00 Laboratory Results 12/31/17 11:36 12/31/17 11:36 12/30/17 12/31/17 01/01/18 05:59 05:59 05:59 Intake Total 2166 2147 Output Total 750 850 Balance 1416 1297 - Pending Discharge Pending Discharge Within 24 Hours: Yes Pending Discharge Date: 01/01/18 Pending Discharge Time: 11:00 - Physical Exam Constitutional: no apparent distress, appears nourished, not in pain, No uncomfortable Cardiovascular: other (irregular rhythm), No systolic murmur, No tachycardia, No edema Respiratory: no respiratory distress, no rales or rhonchi, clear to auscultation Gastrointestinal: normoactive bowel sounds, no palpable masses, tenderness (L abdomen), distension (moderate), No guarding Skin: other (well healing incision site w/o erythema/dehiscence/induration/edema ) Neurologic: AAOx3, sensation intact bilaterally, No weakness Psychiatric: not anxious, not encephalopathic, flat affect, other (lethargic but arousable), No agitated ICD10 Worksheet Patient Problems: Problems Problem Status Onset Acute appendicitis Acute Bowel obstruction Acute
[2017-12-31] MEDS: ATORVASTATIN CALCIUM 20 MG TAB PO SCH (17:13)
[2017-12-31] MEDS: FINASTERIDE 5 MG TAB PO SCH (17:13)
[2017-12-31] MEDS: FAMOTIDINE 20 MG TAB PO SCH (17:13)
--- NOTE | 2017-12-31 20:38 | SOAPPROG ---
SOAP Progress Note Assessment/Plan: Assessment/Plan: Ileus slowly resolving encourage ambulation. SNF on d/c would be ideal May shower Large BM tonight More alert. OOB with assist Adv diet To [facility] in am 12/30/17 17:25 12/31/17 20:37 Objective: Vital Signs Temp Pulse Resp BP Pulse Ox 36.7 C 89 16 122/48 H 93 12/31/17 19:49 12/31/17 19:49 12/31/17 19:49 12/31/17 19:49 12/31/17 19:49 Laboratory Results 12/31/17 11:36 12/31/17 11:36 12/30/17 12/31/17 01/01/18 05:59 05:59 05:59 Intake Total 2166 2145 Output Total 750 850 Balance 1410 3407 ICD10 Worksheet Patient Problems: Problems Problem Status Onset Bowel obstruction Acute Acute appendicitis Acute
[2018-01-01] MEDS: ENOXAPARIN 40 MG/0.4 ML SYR SC SCH (08:35)
[2018-01-01] MEDS: traMADol 50 MG TAB PO SCH (08:36)
[2018-01-01] MEDS: predniSONE 1 MG TAB PO SCH (08:37)
[2018-01-01] MEDS: SENNOSIDES/DOCUSATE SODIUM TAB PO SCH (08:37)
--- NOTE | 2018-01-01 10:31 | PDIAF ---
- Diagnosis Diagnosis: SBO, lysis of adhesions, post-op ileus Code Status: Full Code - Medication Management Discharge Medications: Medications to Continue on Transfer Acetaminophen [Tylenol 325mg (*)] 325 mg PO TID 12/27/17 [Last Taken Unknown] Calcium Carbonate [Oyster Shell Calcium 500 mg (*)] 250 mg PO DAILY 12/27/17 [ Last Taken Unknown] Finasteride [Proscar 5 MG (*)] 5 mg PO DAILY@12/27/17 [Last Taken 12/26/17] Ranitidine HCl 75 mg PO DAILY@12/27/17 [Last Taken Unknown] Simvastatin 40 mg PO DAILY@12/27/17 [Last Taken 12/26/17] predniSONE 1 mg PO TID 12/27/17 [Last Taken 12/26/17] rOPINIRole HCL [Ropinirole HCl] 0.5 mg PO TID@08,,12/27/17 [Last Taken 09/13] traMADol HCL [Tramadol HCl] 50 mg PO BID 12/27/17 [Last Taken 12/26/17] Hydrocodone/APAP 5/325 [[place] 5/325 (*)] 1 tab PO Q4HRS PRN #20 tab 01/01/18 [ Last Taken Unknown] Sennosides/Docusate Sodium [Senokot-S] 1 tab PO BID tab 01/01/18 [Last Taken Unknown] Nursing Home Antibiotics: NA Discharge Medications: Refer to the Discharge Home Medication list for PRN reason. PICC Care - Routine: N/A - Orders Services needed: Registered Nurse, Certified Salt Washer, Physical Therapy, Occupational Therapy Isolation Type: None Oxygen: NA Diet Recommendation: no restrictions on diet Diet Texture: Regular Texture Diet Additional Instructions: Activity as tolerated. May shower. No lifting great than 20lbs for 2 weeks. No wound dressing, wash with warm water and soap. Please call [facility] ( [phone]) with any questions or concerns regarding your surgery such as fever , chills, wound draining, pain not controlled with medication. Follow up in office Thursday01/06/2018 at 11:30am. - Follow Up Care Current Providers and Referrals: Ramirez Hernandes MD [Medical Doctor] - 01/06/18 11:30 am Patient,NotPresent [Unknown] - As per Instructions
--- NOTE | 2018-01-01 10:32 | PDIAF ---
- Diagnosis Diagnosis: SBO, lysis of adhesions, post-op ileus Code Status: Full Code - Medication Management Discharge Medications: Medications to Continue on Transfer Acetaminophen [Tylenol 325mg (*)] 325 mg PO TID 12/27/17 [Last Taken Unknown] Calcium Carbonate [Oyster Shell Calcium 500 mg (*)] 250 mg PO DAILY 12/27/17 [ Last Taken Unknown] Finasteride [Proscar 5 MG (*)] 5 mg PO DAILY@12/27/17 [Last Taken 12/26/17] Ranitidine HCl 75 mg PO DAILY@12/27/17 [Last Taken Unknown] Simvastatin 40 mg PO DAILY@12/27/17 [Last Taken 12/26/17] predniSONE 1 mg PO TID 12/27/17 [Last Taken 12/26/17] rOPINIRole HCL [Ropinirole HCl] 0.5 mg PO TID@,,12/27/17 [Last Taken 09/13] traMADol HCL [Tramadol HCl] 50 mg PO BID 12/27/17 [Last Taken 12/26/17] Hydrocodone/APAP 5/325 [[place] 5/325 (*)] 1 tab PO Q4HRS PRN #20 tab 01/01/18 [ Last Taken Unknown] Sennosides/Docusate Sodium [Senokot-S] 1 tab PO BID tab 01/01/18 [Last Taken Unknown] Intermediate Antibiotics: NA Discharge Medications: Refer to the Discharge Home Medication list for PRN reason. PICC Care - Routine: N/A - Orders Services needed: Registered Nurse, Certified Airframe And Power Plant Mechanic, Physical Therapy, Occupational Therapy Isolation Type: None Oxygen: NA Diet Recommendation: no restrictions on diet Diet Texture: Regular Texture Diet Additional Instructions: Activity as tolerated. May shower. No lifting great than 20lbs for 2 weeks. No wound dressing, wash with warm water and soap. Please call [facility] ( [phone]) with any questions or concerns regarding your surgery such as fever , chills, wound draining, pain not controlled with medication. Follow up in office Thursday01/06/2018 at 11:30am. - Follow Up Care Current Providers and Referrals: Ramirez Henrandes MD [Medical Doctor] - 01/06/18 11:30 am Patient,NotPresent [Unknown] - As per Instructions Sam Palacio MD [Primary Care Provider] - 3 days of d/c SNF/Rehab
--- NOTE | 2018-01-01 10:50 | ASMTLACE ---
[facility] Length of stay for Answers: 4-6 days current admission Comorbidities - select Answers: Other Notes: SBO all that apply # of Emergency department Answers: 1-2 visits in the last 6 months Score: 6 Date Signed: 01/01/2018 10:49 AM Electronically Signed By:Jenna Almanza RN
--- NOTE | 2018-01-01 10:52 | ASMTCMCOM ---
CM Note CM Note Notes: Patient medically cleared to dc to [facility] today, Final orders via allscripts. Awaiting transport time to tell RN . RN has number to call for report. CM available should other needs arise. Plan: To SNF rehab at [facility]. Date Signed: 01/01/2018 10:51 AM Electronically Signed By:Jenna Almanza RN
[2018-01-01 11:23] VITALS: BP 138/79
--- NOTE | 2018-01-01 17:26 | PDDCSUM ---
Discharge Summary Discharge Summary: DISCHARGE SUMMARY FOLLOW-UP ITEMS: Outpatient follow-up with Dr. Ramirez Hernandes DATE OF ADMISSION: 12/27/2017 DATE OF DISCHARGE: 01/01/2018 DISCHARGE DIAGNOSES: 1. Acute small bowel obstruction 2. Acute postoperative ileus 3. Chronic steroid dependency with polymyalgia rheumatica 4. Chronic BPH 5. Chronic spinal stenosis 6. Chronic hyperlipidemia 7. Chronic sinus arrhythmia CONSULTATIONS: General surgery PROCEDURES / IMAGING: Exploratory laparotomy with lysis of adhesions CHIEF COMPLAINT: Acute abdominal pain SUBJECTIVE: Patient is feeling well at time discharge, he has moved his bowels, his bloating in his abdomen is reduced PHYSICAL EXAM ON DISCHARGE: Systolic blood pressure is 110-140, heart rate 90, afebrile overnight, satting well on room air, alert awake oriented x3, abdomen is [id number] distended, minimally tender to palpation, bowel sounds are active comma surgical site is intact with no surrounding erythema LABS ON DISCHARGE: White blood cell count 9400, hemoglobin 13.6, creatinine 0.7 HOSPITAL COURSE BY PROBLEM: 1. Acute small bowel obstruction. Patient presented with acute abdominal pain secondary to bowel obstruction secondary to omental adhesions which were noted on exploratory laparotomy and received lysis of adhesions. The patient is being discharged safely on postop day 5 status post removal of his nasogastric tube, advancement of diet, and movement of his bowels. He did experience an acute postoperative ileus which extended his hospital stay appropriately, but the patient has had a bowel movement overnight, he will be continued on stool softener and as needed MiraLax, and his abdominal pain is very minimal. He will follow up with Dr. Hernandes as an outpatient as scheduled on 01/06. 2. Chronic PMR with continuous chronic steroid dependency. He was continued on his home dosage of prednisone. 3. Chronic spinal stenosis. He was continued on his home dosage of tramadol. 4. Chronic sinus arrhythmia. This present on EKG, it is a sinus arrhythmia and does not require further intervention. DISCHARGE MEDICATIONS: Please see official discharge medication reconciliation sheet in chart , as needed Bishop, scheduled Senokot S twice daily, continue all other home medications. DISCHARGE INSTRUCTIONS: Please follow up with Dr. Hernandes as scheduled on 01/06. TIME SPENT: Greater than 30 minutes were spent on direct patient care, as well as discharge planning and preparation.
== END 2018-01-01 14:30 | DRG 336 ==
LOC: EDUNIT# → F3E 09:27
PROVIDERS: ADMIT Surgery; ATTEND Surgery
PROC: 0DN80ZZ Release Small Intestine, Open Approach (ICD-10-PCS; principal; 2017-12-27 07:00)
DX: K56.50 Intestinal adhesions [bands], unspecified as to partial versus complete obstruction (principal); K91.89 Other postprocedural complications and disorders of digestive system; M48.00 Spinal stenosis, site unspecified; I49.8 Other specified cardiac arrhythmias; E78.5 Hyperlipidemia, unspecified; M35.3 Polymyalgia rheumatica; N40.0 Benign prostatic hyperplasia without lower urinary tract symptoms; Z79.52 Long term (current) use of systemic steroids
CPT/HCPCS: 97116-GP; 97161-GP; 97530-GP; G8978-GP-CJ; G8979-GP-CI; J1100; J1650; J2405; J2704; J3010; J7512; Q9967

== ENCOUNTER → 2018-03-12 | Outpatient (CLI) | payer OTHER | LOC: FIMAGING 12:50 | PROVIDERS: ATTEND Internal Medicine Rheumatology | DX: R90.82 White matter disease, unspecified (principal); G31.9 Degenerative disease of nervous system, unspecified; M43.16 Spondylolisthesis, lumbar region; M48.061 Spinal stenosis, lumbar region without neurogenic claudication; M51.36 Other intervertebral disc degeneration, lumbar region; M48.48XA Fatigue fracture of vertebra, sacral and sacrococcygeal region, initial encounter for fracture | CPT/HCPCS: 70553; 72148; A9585; 82565-PO ==

== ENCOUNTER → 2018-03-25 | Outpatient (CLI) | payer OTHER ==
[~2018-03-25] MED LIST changes: -GADOBUTROL 10 ML VIAL IVP ONE; +IOPAMIDOL (ISOVUE 370) 100 ML BTL IV ONE
== END ==
LOC: FIMAGING 12:14
PROVIDERS: ATTEND Psychiatry & Neurology Neurology
DX: M48.56XA Collapsed vertebra, not elsewhere classified, lumbar region, initial encounter for fracture (principal); M43.16 Spondylolisthesis, lumbar region; M51.36 Other intervertebral disc degeneration, lumbar region; I70.0 Atherosclerosis of aorta; G31.9 Degenerative disease of nervous system, unspecified; I25.9 Chronic ischemic heart disease, unspecified; R94.02 Abnormal brain scan
CPT/HCPCS: 70450; 70496; 72100; Q9967; 82565-PO